=== PATIENT | female | born 1960 | race Caucasian/White ===

== ENCOUNTER 2021-11-20 19:30 | Outpatient (CLI) | payer BC | END 2021-11-20 19:31 | disposition home or self-care (01) | LOC: SLEEPLAB 19:30 | PROVIDERS: ATTEND Internal Medicine | DX: G47.33 Obstructive sleep apnea (adult) (pediatric) (principal); G47.10 Hypersomnia, unspecified | CPT/HCPCS: 95810 ==

== ENCOUNTER 2021-12-17 09:51 | Outpatient (CLI) | payer BC ==
[2021-12-17 11:33] LABS: ALT (SGPT) 42 U/L (8-55); AST (SGOT) 38 U/L (5-34); Alkaline Phosphatase 137 U/L (40-110); Anion Gap 16 mmol/L (10-20); BUN (Urea Nitrogen) 12 mg/dL (9.8-20.1); Bilirubin, Total 0.8 mg/dL (0.2-1.2); Calc. Creatinine Clearance 0 mL/min (70-130); Calcium 8.9 mg/dL (7.8-10.44); Carbon Dioxide 24 mmol/L (22-29); Chloride 103 mmol/L (98-107); Glucose 84 mg/dL (70-105); Potassium 4.6 mmol/L (3.5-5.1); Sodium 138 mmol/L (136-145)
[2021-12-17 11:42] LABS: #Basophils 0.1 10x3/uL (0.0-0.2); #Eosinphils 0.2 10x3/uL (0.0-0.5); #Monocytes 0.4 10x3/uL (0.0-1.1); #Neutrophils 2.1 10x3/uL (1.5-8.4); %Basophils 1.3 % (0.0-2.0); %Eosinophils 3.5 % (0.0-6.0); %Lymphocytes 41.8 % (18.0-47.0); %Monocytes 8.8 % (0.0-10.0); %Neutrophils 44.4 % (40.0-75.0); Hemoglobin 13.5 g/dL (12.0-15.5); Mean Corpuscular HGB CONC 32.5 g/dL (32.0-36.0); Mean Corpuscular Hemoglobin 27.8 pg (27.0-33.0); Mean Corpuscular Volume 85.6 fl (81.6-98.3); Platelet Count 204 10x3/uL (150-450); RBC Distribution Width 13.9 % (11.5-14.5); Red Blood Cell (RBC) Count 4.85 10x6/uL (3.90-5.03); White Blood Cell (WBC) Count 4.8 10x3/uL (3.5-10.5)
== END 2021-12-17 09:52 | disposition home or self-care (01) ==
LOC: LABBT 09:51
PROVIDERS: ATTEND Surgery
DX: Z01.818 Encounter for other preprocedural examination (principal); K36 Other appendicitis; Z20.822 Contact with and (suspected) exposure to COVID-19
CPT/HCPCS: 80053; 85025; 93005; 93010; U0003; U0005

== ENCOUNTER 2021-12-22 06:53 | Day surgery (SDC) | payer BC ==
[2021-12-21 11:39] VITALS: BMI 26.1
[2021-12-22] MEDS ORDERED: Bupivacaine 0.25% HCL 30 ML VIAL ONE (08:08)
[2021-12-22] MEDS ORDERED: EPINEPHrine 1 MG/ML AMP ONE (08:08)
[2021-12-22] MEDS ORDERED: fentaNYL Citrate/PF 100 MCG/2 ML SYRINGE ONE (09:48)
[2021-12-22] MEDS ORDERED: Sodium Chloride 0.9% 100 ML ONE (09:49)
[2021-12-22] MEDS ORDERED: cefOXitin 2 GM VIAL ONE (09:49)
[2021-12-22] MEDS ORDERED: Lidocaine 1% PF 5 ML VIAL ONE (10:00)
[2021-12-22] MEDS ORDERED: Ondansetron PF 4 MG/2 ML Vial ONE ×2 (10:00→11:41)
[2021-12-22] MEDS ORDERED: Glycopyrrolate 0.2 MG/ML 5 ML SYRINGE ONE (10:00)
[2021-12-22] MEDS ORDERED: Dexamethasone 20 MG/5 ML VIAL ONE (10:00)
[2021-12-22] MEDS ORDERED: ePHEDrine 50 MG/ML VIAL ONE (10:00)
[2021-12-22] MEDS ORDERED: Ketorolac Tromethamine 30 MG/ML VIAL ONE (10:00)
[2021-12-22] MEDS ORDERED: Rocuronium Bromide 10 MG/ML (10ML VIAL) ONE (10:00)
[2021-12-22] MEDS ORDERED: PROPOFOL 200 MG/20 ML VIAL ONE (10:00)
== END 2021-12-22 12:21 | disposition home or self-care (01) ==
LOC: SDC 06:53
PROVIDERS: ATTEND Surgery
PROC: 0DTJ4ZZ Resection of Appendix, Percutaneous Endoscopic Approach (ICD-10-PCS; principal; 2021-12-22)
DX: K35.80 Unspecified acute appendicitis (principal); K36 Other appendicitis; N73.6 Female pelvic peritoneal adhesions (postinfective); E07.9 Disorder of thyroid, unspecified; Z79.890 Hormone replacement therapy; Z79.899 Other long term (current) drug therapy; Z88.2 Allergy status to sulfonamides; Z91.040 Latex allergy status
CPT/HCPCS: 88304; A4649; J0171; J0694; J1100; J1885; J2405; J2704; J3490; S0020

== ENCOUNTER 2022-11-03 07:58 | Outpatient (CLI) | payer BC | END 2022-11-03 07:59 | disposition home or self-care (01) | LOC: NM 07:58 | PROVIDERS: ATTEND Internal Medicine Gastroenterology | DX: R14.0 Abdominal distension (gaseous) (principal); R94.5 Abnormal results of liver function studies; R19.8 Other specified symptoms and signs involving the digestive system and abdomen; R53.83 Other fatigue | CPT/HCPCS: 78264; A9541 ==

== ENCOUNTER 2025-04-15 08:22 | Outpatient (CLI) | payer BC ==
[2025-04-15 08:49] LABS: Estimated GFR - POC 56.0
== END 2025-04-15 08:23 | disposition home or self-care (01) ==
LOC: SCSMRI 08:22
PROVIDERS: ATTEND Specialist
DX: R42 Dizziness and giddiness (principal)
CPT/HCPCS: 36415; 70553; 76376; 82565